=== PATIENT | male | born 1955 | race Caucasian/White ===

== ENCOUNTER 2018-12-26 11:58 | Emergency (ER) | payer BC, OTHER ==
[2018-12-26] MEDS ORDERED: KETOROLAC 60 MG/2 ML VIAL IM STA (12:41)
--- NOTE | 2018-12-26 13:23 | XR ---
EXAMINATION TYPE: XR ankle complete LT DATE OF EXAM: 12/26/2018 CLINICAL HISTORY: Pain after fall injury TECHNIQUE: Frontal, lateral and oblique images of the left ankle are obtained. COMPARISON: None. FINDINGS: There is moderate soft tissue swelling over the lateral malleolus. There is loss of normal Boehler's angle with lucent and sclerotic area through the posterior mid and inferior calcaneus. Ank le mortise symmetry is preserved. Large inferior calcaneal spur is noted. IMPRESSION: There is age indeterminate comminuted fractures through the calcaneus. Correlate clinica lly with type of injury. Moderate soft tissue swelling over lateral malleolus without acute fracture at this level identified.
--- NOTE | 2018-12-26 13:56 | XR ---
EXAMINATION TYPE: XR foot complete LT DATE OF EXAM: 12/26/2018 CLINICAL HISTORY: Pain after fall injury. TECHNIQUE: Frontal, lateral, and oblique images of the left foot are obtained. COMPARISON: None FINDINGS: There is no additional acute fracture/dislocation evident in the left foot. There is flexi on in varus positioning distal fifth toe. Forefoot and midfoot articulations are preserved. The overl radha soft tissue appears unremarkable. IMPRESSION: There is redemonstration of comminuted minimally displaced fracture through the distal t wo thirds of the calcaneus with loss of Boehler angle, lucency present suggests probable acute in age . Orthopedic referral advised.
[2018-12-26] MEDS ORDERED: MORPHINE SULFATE 4 MG/ML SYRINGE IM STA (14:05)
--- NOTE | 2018-12-26 14:24 | XR ---
EXAMINATION TYPE: XR lumbar spine 2 or 3V DATE OF EXAM: 12/26/2018 CLINICAL HISTORY: Recent injury with pain. TECHNIQUE: Frontal and lateral images of the lumbar spine are obtained. COMPARISON: None FINDINGS: There are 5 lumbar type vertebral bodies identified. Osseous structures are somewhat demin eralized. Lumbar spine show straightened alignment. Vertebral body heights are maintained without acu te fracture. There is mild to moderate disc space narrowing with mild anterior spurring L4-L5 level. There is moderate disc space narrowing with mild to moderate anterior spurring L5-S1 level. Overlying soft tissue is unremarkable. IMPRESSION: No acute fracture or dislocation is seen in the lumbar spine.
--- NOTE | 2018-12-26 15:55 | ED ---
Fall HPI - General Chief Complaint: Fall Stated Complaint: Ankle injury-[facility] Time Seen by Provider: 12/26/18 12:34 Source: patient Mode of arrival: wheelchair - History of Present Illness Initial Comments: 63-year-old male who denies past medical history presenting today for chief complaint of fall with left ankle pain. Patient states that he was on scaffolding when he was about 4 feet from the ground and gave out, he states he fell bearing most of his weight on his left foot and ankle. He states he noticed immediate pain causing him to fall sideways onto his left side. He denies any injury to the thorax or lumbar spine. He denies head injury or loss of consciousness. Patient denies any neck pain. Patient states he was unable to fully weight-bear on the left foot secondary to pain following the injury. He did note swelling over the lateral aspect of the left ankle. Patient denied numbness tingling or loss sensation. He denied any coolness or pallor of the extremity. Patient states he was concerned about fracture and presented for evaluation. Upon arrival pt denies fever, chills, shortness of breath, chest pain, back pain, abdominal pain, nausea or vomiting, numbness or tingling, dysuria or hematuria, constipation or diarrhea, headaches or visual changes, injury to any other extremity including right LE and left knee or hip pain or any other complaints. - Related Data Home Medications Medication Instructions Recorded Confirmed Atorvastatin Calcium [Lipitor] 10 mg PO DAILY 11/10/15 12/26/18 Lisinopril [Zestril] 5 mg PO DAILY 11/10/15 12/26/18 Previous Rx's Medication Instructions Recorded HYDROcodone/APAP 7.5-325MG [[place] 1 tab PO Q4H PRN 3 Days #18 tab 12/26/18 7.5-325] Allergies Allergy/AdvReac Type Severity Reaction Status Date / Time Penicillins Allergy Rash/Hives Verified 12/26/18 12:39 sulfamethoxazole Allergy Rash/Hives Verified 12/26/18 12:39 [From Bactrim] trimethoprim [From Bactrim] Allergy Rash/Hives Verified 12/26/18 12:39 Review of Systems ROS Statement: Those systems with pertinent positive or pertinent negative responses have been documented in the HPI. ROS Other: All systems not noted in ROS Statement are negative. Past Medical History Past Medical History: Cancer, GERD/Reflux, Hyperlipidemia, Hypertension, Skin Disorder Additional Past Medical History / Comment(s): DYSPHAGIA. Rash on both sides of abd-not contagious. MELANOMA with surgical removal. History of Any Multi-Drug Resistant Organisms: None Reported Past Surgical History: Hernia Repair, Tonsillectomy Additional Past Surgical History / Comment(s): 05/11/16 laproscopic brian fundloplasty with mesh. Other surgical hx: EGD. LAST COLONOSCOPY 3-4 YRS AGO. REMOVAL OF MELANOMA ON MID LOWER BACK. Past Anesthesia/Blood Transfusion Reactions: No Reported Reaction Past Psychological History: No Psychological Hx Reported Smoking Status: Never smoker Past Alcohol Use History: Occasional Past Drug Use History: None Reported - Past Family History Father Family Medical History: Cancer Additional Family Medical History / Comment(s): COLON Mother Additional Family Medical History / Comment(s): Mother of lupus. General Exam - General Exam Comments Initial Comments: General: The patient is awake and alert, in no distress, and does not appear acutely ill. Eye: Pupils are equal, round and reactive to light, extra-ocular movements are intact. No nystagmus. There is normal conjunctiva bilaterally. No signs of icterus. Ears, nose, mouth and throat: There are moist mucous membranes and no oral lesions. No cervical spine tenderness midline or paravertebral. Full range of motion of the cervical spine. Neck: The neck is supple, there is no tenderness or JVD. Cardiovascular: There is a regular rate and rhythm. No murmur, rub or gallop is appreciated. Respiratory: Lungs are clear to auscultation, respirations are non-labored, breath sounds are equal. No wheezes, stridor, rales, or rhonchi. Lung sounds present in all lung parker. Patient denies any pain with deep inspiration Gastrointestinal: Soft, non-distended, non-tender abdomen without masses or organomegaly noted. There is no rebound or guarding present. Bowel sounds are unremarkable. Musculoskeletal: Upon inspection of the left ankle there is significant soft tissue swelling over the heel as well as the lateral malleolus. Ankle does not appear grossly deformed. DP feel diminished b/l, however they are equal. Both feel warm to palpation with strong posteror tibial pulses on doppler that are equal to ausculation. Normal ROM at the knee and hip of the left LE, and right LE. Strength 5/5 at knee and hip. No tenderness to palpation of the lumbar spine, no paravertebral tenderness of the lumbar spine. Normal inspection of the chest patient denies any pain to palpation. Sensation intact both proximal and distal to injury. Capillary refill < 2 seconds. Neurological: A&O x 3. CN II-XII intact, There are no obvious motor or sensory deficits. Coordination appears grossly intact. Speech is normal. Skin: Skin is warm and dry and no rashes or lesions are noted. Psychiatric: Cooperative, appropriate mood & affect, normal judgment. Limitations: no limitations Course Vital Signs 12/26/18 12/26/18 12:24 16:06 Temperature 98.3 F 98.6 F Pulse Rate 64 66 Respiratory 18 19 Rate Blood Pressure 176/95 163/90 O2 Sat by Pulse 100 99 Oximetry Medical Decision Making - Medical Decision Making Well-appearing 63-year-old male presenting for left ankle injury. Patient came down on left ankle from 4 feet on falling scaffolding. Patient states he fell on his left side following the pain in his left ankle. He denies falling very hard experiencing pain of the chest or lower back. Lumbar spine imaging negative for acute fracture. X-ray of the foot and ankle revealed a comminuted calcaneus fracture. I did consult on-call green building design specialist physician syrup mixer assistant Edwin Cooper he was in the OR. I called his attending Dr. Gutierrez who recommended consulting Orthopedic Surgery as he is not comfortable with repair of calcaneus fracture. I did consult attending provider who called [facility]. [facility], he states he recommends outpatient follow-up with Dr. England splint and nonweightbearing instruction. He did review imaging studies to my knowledge and he was discussing case with attending provider Dr. Escamilla. Patient is neurovascular intact. Pain controlled. At this time do feel patient is stable for discharge with with back surgery follow-up and strict nonweightbearing precautions with no removal of splint. Patient aware of return parameters, denies questions at this time. Patient was giving a stay prescription for [place] for pain management as this is a very painful injury. Patient is we have all rest including overdose, and addiction--he is aware of all risks and proper use. I discussed the case in detail with attending provider Dr. England who agrees impression and plan. Patient was discharged in stable condition appearing well Disposition Clinical Impression: Left calcaneal fracture Disposition: HOME SELF-CARE Condition: Good Instructions (If sedation given, give patient instructions): Calcaneal Fracture (ED), R.I.C.E. Treatment (ED) Additional Instructions: Please use medication as discussed. Please follow-up with orthopedic surgery in next 24 hours, absolutely no weightbearing on the left foot-use crutches at all times. Please return to emergency room if the symptoms increase or worsen or for any other concerns, including decreased sensation, numbness, cool changes of toes. Do not wet, or remove the splint. Prescriptions: HYDROcodone/APAP 7.5-325MG [[place] 7.5-325] 1 tab PO Q4H PRN 3 Days #18 tab PRN Reason: Severe Pain Is patient prescribed a controlled substance at d/c from ED?: Yes When asked, does pt state using other controlled substances?: No If prescribed controlled substance>3 days was MAPS reviewed?: Prescribed <3 Days If opioid is for acute pain is fill amount 7 days or less?: Yes If Rx opioid, was Start Talking consent form obtained?: Yes Referrals: Mj Rosenberg DO [Primary Care Provider] - 1-2 days Huber Selby MD [Medical Doctor] - 1-2 days Time of Disposition: 15:54
[2018-12-26 16:08] VITALS: BP 163/90; PULSE 66; RESP 19; TEMP 98.6
== END 2018-12-26 16:07 | disposition home or self-care (01) ==
LOC: EC 11:58
DX: S92.002A Unspecified fracture of left calcaneus, initial encounter for closed fracture (principal); E78.5 Hyperlipidemia, unspecified; I10 Essential (primary) hypertension; Z79.899 Other long term (current) drug therapy; Z88.0 Allergy status to penicillin; Z88.1 Allergy status to other antibiotic agents; Z88.2 Allergy status to sulfonamides; Z85.820 Personal history of malignant melanoma of skin; W12.XXXA Fall on and from scaffolding, initial encounter; Y93.H3 Activity, building and construction; Y92.69 Other specified industrial and construction area as the place of occurrence of the external cause; Y99.0 Civilian activity done for income or pay
CPT/HCPCS: 72100; 73610; 73630; 99283; 96372 ×2; J2270; J1885

== ENCOUNTER → 2018-12-29 | Outpatient (CLI) | payer OTHER ==
--- NOTE | 2018-12-29 16:08 | CT ---
CT left ankle HISTORY: Displaced intra-articular fracture of left calcaneus Helical acquisition through the left ankle Correlation to left foot submitted to 12/26/2018 The intra-articular comminuted, displaced fracture of the left calcaneus is again noted. No dislocati on. There is associated soft tissue swelling present. IMPRESSION: Findings compatible with patient's known fracture.
== END | disposition home or self-care (01) ==
LOC: RADCTMAIN 12:18
PROVIDERS: ATTEND Orthopaedic Surgery
DX: M79.672 Pain in left foot (principal)

== ENCOUNTER 2019-01-12 08:32 | Inpatient (IN) | payer BC, OTHER ==
[2019-01-10 15:28] VITALS: BMI 27.9
[~2019-01-12 08:32] MED LIST: DEXAMETHASONE SOD PHOSPHATE 10 MG/ML 1 ML VIAL IV ONE; HYDROmorphone 0.5 MG/0.5 ML SYRINGE IVP PRN; MIDAZOLAM (PF) 2 MG/2 ML VIAL IV PRN; ONDANSETRON 4 MG/2 ML VIAL IVP ONE; SCOPOLAMINE 1.5MG/72HR PATCH TRANSDERM ONE; ceFAZolin IN SWFI 2 GM/20 ML SYRINGE IVP ONE
[2019-01-12] MEDS ORDERED: LIDOCAINE 1% 20 ML VIAL (10MG/ML) FOR IV START SQ ONE (13:31)
[2019-01-12] MEDS: LACTATED RINGERS 1,000 ML IV SCH ×2 (13:31→21:11)
[2019-01-12] MEDS ORDERED: MIDAZOLAM 2 MG/2 ML VIAL IV ONE (13:58)
[2019-01-12] MEDS ORDERED: fentaNYL (PF) 50 MCG/ML 2 ML AMP IV ONE (13:58)
--- NOTE | 2019-01-12 14:13 | P.ONQ ---
Anesthesiology Proc Note - PNB - Peripheral Nerve Block Performed Left Adductor Canal Single Time Out Performed: Yes Procedure Start Time: 13:59 Procedure Stop Time: 14:09 Indication: Acute Post-Operative Pain, Analgesia, Requested by physician Sedation Type: Sedate with meaningful contact maintained Preparation: Sterile Prep Position: Supine Catheter: Indwelling Needle Types: On-Q Needle Size: 50mm (2") Needle Gauge: 21 Technique: Ultrasound Injectate: 0.5% Ropivacaine (see comment for volume) (15CC) Blood Aspirated: No Pain Paresthesia on Injection Noted: No
--- NOTE | 2019-01-12 14:14 | P.ONQ ---
Anesthesiology Proc Note - PNB - Peripheral Nerve Block Performed Left Popliteal Time Out Performed: Yes Procedure Start Time: 14:10 Procedure Stop Time: 14:12 Indication: Acute Post-Operative Pain, Analgesia, Requested by physician Sedation Type: Sedate with meaningful contact maintained Preparation: Sterile Prep Position: Supine Catheter: Indwelling Needle Types: On-Q Needle Size: 50mm (2") Needle Gauge: 21 Technique: Ultrasound Injectate: 0.5% Ropivacaine (see comment for volume) (15CC) Blood Aspirated: No Pain Paresthesia on Injection Noted: No Resistance on Injection: Normal Events: Uneventful and Well Tolerated
[2019-01-12] MEDS ORDERED: MIDAZOLAM 2 MG/2 ML VIAL ONE (14:59)
[2019-01-12] MEDS ORDERED: PHENYLEPHRINE-0.9% NACL SYG 1 MG/10 ML SYRINGE ONE (14:59)
[2019-01-12] MEDS ORDERED: fentaNYL (PF) 50 MCG/ML 2 ML AMP ONE (14:59)
[2019-01-12] MEDS ORDERED: ROPIVACAINE 5 MG/ML 30 ML VIAL ONE (14:59)
[2019-01-12] MEDS ORDERED: LIDOCAINE 1% INJ 10MG/ML (20 ML MDV) ONE (14:59)
[2019-01-12] MEDS ORDERED: PROPOFOL 10 MG/ML 20 ML VIAL IV ONE (14:59)
[2019-01-12] MEDS ORDERED: LACTATED RINGERS 1,000 ML IV ONE (16:45)
--- NOTE | 2019-01-12 17:17 | P.OP ---
Date of Procedure: 01/12/19 Preoperative Diagnosis: Left completely displaced tongue variant intra-articular calcaneus fracture Postoperative Diagnosis: Same Procedure(s) Performed: Open reduction and internal fixation of left displaced tongue-type calcaneus fracture Anesthesia: STACY, regional Surgeon: Huber Selby Assistant To The Dean #1: Pierre Ruth Estimated Blood Loss (ml): 25 IV fluids (ml): 1,200 Pathology: none sent Condition: stable Disposition: PACU Indications for Procedure: The patient is a very pleasant previously healthy 63-year-old male who sustained a closed left tongue variant calcaneus fracture in a work-related fall in early December. He was seen in the emergency department where x-rays were taken. He is referred to my office for follow-up. The patient was found to have a displaced tongue variant calcaneus fracture. He was sent for a computed tomography scan and placed in a prefabricated calcaneus fracture area for brace with moleskin lining. After the computed tomography scan was obtained we discussed treatment options. Due to the significant displacement of the tongue fragment I recommended operative fixation. We discussed different surgical techniques including percutaneous reduction and fixation as described by Andres, a sinus tarsi approach and open reduction internal fixation versus an extensile lateral incision. We discussed the pros and cons of each treatment. My recommendation was to wait for the soft tissue swelling to resolve and the skin to wrinkle and then proceed with an attempt at percutaneous reduction and fixation and if we are unable to get a satisfactory reduction to proceed with an extensile lateral open approach. The patient and his significant other agreed to this. We discussed the potential risks and complications of surgery including but not limited to risk of anesthesia, superficial infection, deep infection, delayed wound healing, superficial wound necrosis, damage to local blood vessels or nerves, nonunion the fracture, malunion of the fracture, postoperative displacement, loss of reduction, loss of fixation, symptomatically hardware, posttraumatic subtalar arthritis, chronic pain, chronic swelling, and inability to regain preinjury level of function, inability to regain ability to work at a physically demanding job, DVT , PE, other medical complications, need for further surgery, and possibly loss of life or limb. The patient voiced his understanding of this. We also discussed that a work-related injury as a risk factor for poor outcome comparison nonrelated work injuries. The patient also understands that full recovery following calcaneus fractures can take 1-2 years. He understands that he may have chronic pain in the heel as a result of his injury. He provided his verbal and written consent to go forward with the above procedure. Description of Procedure: The patient was identified in preoperative holding and the correct left leg was marked with my initials. I reviewed the consent form with the patient and all of his questions were answered. He was given a popliteal and saphenous nerve block by anesthesia. He was then brought back to the operating room. He was transferred onto the OR table where general anesthetic and preoperative antibiotics were given. The patient had a tourniquet applied to the proximal aspect of the left thigh. The patient was then positioned in the lateral decubitus position with the right side down and the affected left leg up. The right leg was padded with foam. A bump was placed under the left leg to facilitate imaging. Fluoroscopy was brought in to verify that a lateral and axial view could be obtained. The left leg was then prepped and draped in the standard sterile fashion. Prior to starting surgery timeout was performed identifying the correct patient, operative extremity, and procedure. I began by attempting a small incision technique as described by Andres. I began by outlining the incision for an extensile lateral approach with a horizontal and vertical limb. I then came in with fluoroscopy and made a stab incision over the posterior aspect of the calcaneus. Skin incision was made with a scalpel only. Dissection was carried out carefully through the subcutaneous tissue with a hemostat. A 2.5 mm drill bit was then used to create a path down the tongue fragment. I then placed a terminally threaded 4 mm Schanz pin attached to a universal T-handled shad in this hole down into the tongue fragment. I then marked out the level of the depressed posterior facet fragment of the tongue piece directly over the marking for the extensile lateral incision. Skin incision was made with a scalpel. A 1 cm incision was made. I then used a small disla elevator to gently manipulate the posterior facet fragment while pulling down on the Schanz pin. The fracture site was freed up with a Kerkhoven elevator. I was then able to nicely reduce the posterior facet fragment and the tongue fragment reduced. A fluoroscopic image was taken verifying reduction. At this point I elected to proceed with the percutaneous fixation. A K wire for a 7.0 cannulated screw was placed from the posterior tuberosity just inferior to the posterior facet and up into the anterior process to actively rafting screw to prevent the posterior facet fragment from depressing. A partially threaded 7.0 mm screw was placed. I then placed a partially threaded cannulated 5.0 mm screws across the tongue fragment to compress and hold the reduction. Final fluoroscopic images were taken including a lateral of the calcaneus and axial heel view. There are some settling of the tongue fragment but it was significantly improved compared to preoperative imaging. The wounds were copiously irrigated and closed with interrupted 3-0 nylon stitches. I verified that all instrument, sponge, and sharp counts were correct. A sterile dressing was applied. The drapes were taken down and a well-padded bulky [place] splint was placed with the ankle in neutral. The tourniquet was not inflated during the case. The patient was then transferred to a gurney, extubated, and brought to PACU without procedure well. Pierre Ruth PA-C was required as a skilled purchasing administrative assistant for patient positioning, exposure, reduction of the fracture, placement of hardware, closure of wounds, and application of splint. Plan : The patient is going to remain strictly nonweightbearing in a bulky [place] splint. I anticipate a total of 10-12 weeks strict nonweightbearing followed by 4-6 weeks of partial progressive weightbearing in a tall boot. If the patient is comfortable following surgery he is able to discharge home tonight. If he needs to stay in the hospital overnight we will place orders for pain control and 2 doses of antibiotics. He will need follow-up in the office in 2 weeks for splint removal, x-rays of the heel, and wound inspection.
[2019-01-12] MEDS ORDERED: hydrOXYzine PAMOATE 25 MG CAP PO PRN (17:26)
[2019-01-12] MEDS ORDERED: HYDROcodone/APAP 5-325MG 1 EACH TAB PO PRN ×2 (17:26)
[2019-01-12] MEDS ORDERED: HYDROmorphone 0.5 MG/0.5 ML SYRINGE IVP PRN ×2 (17:26)
[2019-01-12] MEDS ORDERED: ONDANSETRON 4 MG/2 ML VIAL IVP PRN (17:26)
[2019-01-12] MEDS ORDERED: SENNOSIDES-DOCUSATE SODIUM 1 EACH TAB PO PRN (17:26)
[2019-01-12] MEDS ORDERED: NALOXONE 0.4 MG/ML 1 ML VIAL IV PRN (17:56)
[2019-01-12 18:49] LABS: Basophils % (A) 0 %; Eosinophils % (A) 0 %; HCT 40.6 % (39.0-53.0); HGB 13.7 gm/dL (13.0-17.5); Lymphocytes # (A) 0.7 k/uL (1.0-4.8); Lymphocytes % (A) 10 %; MCH 32.5 pg (25.0-35.0); MCHC 33.7 g/dL (31.0-37.0); MCV 96.3 fL (80.0-100.0); Mean Platelet Volume 6.9; Monocytes # (A) 0.1 k/uL (0-1.0); Monocytes % (A) 1 %; Neutrophils # (A) 5.7 k/uL (1.3-7.7); Neutrophils % (A) 87 %; Platelet Count 312 k/uL (150-450); RBC 4.21 m/uL (4.30-5.90); RDW 12.5 % (11.5-15.5); WBC 6.5 k/uL (3.8-10.6)
[2019-01-12] MEDS: HYDROcodone/APAP 10-325MG 1 EACH TAB PO PRN (20:20)
[2019-01-12] MEDS: HYDROmorphone 1 MG/ML 1 ML SYRINGE IVP PRN (21:20)
[2019-01-13] MEDS: ceFAZolin IN SWFI 2 GM/20 ML SYRINGE IVP SCH ×2 (00:22→11:52)
[2019-01-13] MEDS: HYDROcodone/APAP 10-325MG 1 EACH TAB PO PRN ×4 (00:41→13:26)
[2019-01-13 00:53] VITALS: RESP 16
[2019-01-13] MEDS: LACTATED RINGERS 1,000 ML IV SCH ×2 (02:39)
[2019-01-13] MEDS: HYDROmorphone 1 MG/ML 1 ML SYRINGE IVP PRN (02:45)
--- NOTE | 2019-01-13 07:21 | FL ---
EXAMINATION TYPE: FL guidance operating room, XR calcaneus 2V LT DATE OF EXAM: 01/12/2019 CLINICAL HISTORY: Left calcaneal fracture. TECHNIQUE: Fluoroscopy. Intraoperative 2 views left calcaneus. COMPARISON: CT left ankle December 29, 2018. FINDINGS: Fluoroscopic guidance was provided during open reduction internal fixation procedure perfo rmed by Dr. Selby. A total of 2 minutes 25 seconds of fluoroscopic time was utilized during the p rocedure and 5 spot intraoperative images are acquired. Intraoperative images acquired show placement of large horizontal screw and 2 posterior vertically or iented screws through comminuted minimally displaced fracture deformity of the calcaneus. Satisfactor y alignment is seen on intraoperative images provided after open reduction internal fixation. IMPRESSION: As Above.
[2019-01-13] MEDS ORDERED: ENOXAPARIN 40 MG/0.4 ML SYRINGE SQ SCH (09:00)
[2019-01-13 09:30] VITALS: BP 122/65; PULSE 62; TEMP 98.2
--- NOTE | 2019-01-13 10:54 | P.DS ---
Providers Date of admission: 01/12/19 12:42 Expected date of discharge: 01/13/19 Attending physician: Huber Selby Consults: 01/12/19 17:35 Consult Physician Routine Consulting Provider: Mj Rosenberg Consult Reason/Comments: Medical management Do you want consulting provider notified?: Yes Primary care physician: Mj Rosenberg - Discharge Diagnosis(es) (1) History of hypertension Current Visit: Yes Status: Acute (2) Left calcaneal fracture Current Visit: No Status: Acute Hospital Course: This is a pleasant 63-year-old male who presented with left completely displaced tongue variant intra-articular calcaneus fracture. He was admitted for open reduction internal fixation of left displaced tongue-type calcaneus fracture performed by Dr. Selby. The patient tolerated the procedure well and did well postoperatively. He has remained nonweightbearing on the left lower extremity. He is been able to use crutches to aid in ambulation as needed. His pain is adequately controlled. He feels he is ready for discharge today. Condition on day of discharge stable. Patient will be discharged home. Patient was cleared preoperatively for surgery. Patient currently denies any nausea, vomiting, fever, or chills. Patient is eating and voiding freely without difficulty. Patient will keep left lower extremity leg splint clean, dry, and intact. He will remain strict nonweightbearing on the left lower extremity. He may elevate and apply ice over the left lower extremity for comfort support as needed. He is encouraged to use crutches to aid in ambulation. Prescription for aspirin 325 mg 1 tab daily dispense #14 has been prescribed. He should take this prescription until completion. Prescriptions have also been written for Percocet 5 mg/325 mg, Mangum 10 mg/325 mg, and docusate 100 mg which patient may take as prescribed as needed for relief of his symptoms. Patient has a history of hypertension. Physical Exam on day of discharge: Patient is awake, alert, and oriented 3 Vital signs stable Good chest excursion with deep inspiration and expiration Bulky [place] splint is intact over the left lower extremity Splint is clean, dry, and intact No significant pain with palpation over the left knee Neurovascular intact left lower extremity Patient is able wiggle toes of the left lower extremity difficulty Procedures: Open reduction internal fixation of left displaced tongue-type calcaneus fracture Patient Condition at Discharge: Stable Plan - Discharge Summary Discharge Rx Participant: Yes New Discharge Prescriptions: New Aspirin 325 mg PO DAILY #14 tab Docusate [Colace] 100 mg PO BID #60 capsule HYDROcodone/APAP 10-325MG [Mangum 10-325] 1 tab PO Q6HR PRN 7 Days #40 tab PRN Reason: Pain oxyCODONE HCL/ACETAMINOPHEN [Percocet 5-325 mg] 1 tab PO Q6HR PRN 7 Days #10 tab PRN Reason: Severe Pain No Action Lisinopril [Zestril] 5 mg PO DAILY Atorvastatin Calcium [Lipitor] 10 mg PO DAILY HYDROcodone/APAP 10-325MG [Mangum 10-325] 1 tab PO Q6HR PRN PRN Reason: Pain Discharge Medication List Atorvastatin Calcium [Lipitor] 10 mg PO DAILY 11/10/15 [History] Lisinopril [Zestril] 5 mg PO DAILY 11/10/15 [History] HYDROcodone/APAP 10-325MG [Mangum 10-325] 1 tab PO Q6HR PRN 01/11/19 [History] Aspirin 325 mg PO DAILY #14 tab 01/12/19 [Rx] Docusate [Colace] 100 mg PO BID #60 capsule 01/12/19 [Rx] HYDROcodone/APAP 10-325MG [Mangum 10-325] 1 tab PO Q6HR PRN 7 Days #40 tab [Rx] oxyCODONE HCL/ACETAMINOPHEN [Percocet 5-325 mg] 1 tab PO Q6HR PRN 7 Days #10 tab 01/12/19 [Rx] Follow up Appointment(s)/Referral(s): Huber Selby MD [Medical Doctor] - 2 Weeks Patient Instructions/Handouts: ORIF (DC) Activity/Diet/Wound Care/Special Instructions: -Strict non-weight bearing on your operative leg. Do not remove your splint; Keep splint clean, dry, and intact -Use crutches, knee scooter, or a walker to ambulate after surgery. -Elevate and ice operative leg to help reduce swelling and control pain. -Take pain medications as prescribed. Take Colace as a stool softener. Take aspirin as prescribed for blood clot prevention. -Follow-up appointment with Dr. Selby in the office in 2 weeks. -Call the office with any questions or concerns, Discharge Disposition: HOME SELF-CARE
--- NOTE | 2019-01-13 12:48 | P.CON ---
Consult Note - . Consult date: 01/13/19 Assessment/Plan:: This is a very pleasant 63-year-old gentleman who is admitted under orthopedic surgery team and is status post open reduction internal fixation of the left displaced tongue type calcaneal Fracture. Status post procedure the patient is doing fine he has his left leg in dressing status post surgery. The patient denies any chest pain, racing heart, no cough, shortness breath, no bowel pain, nausea and vomiting, or diarrhea constipation, no tingling numbness on in the extremities, no itch no rash. Past medical history significant for - hypertension - Skin cancer Past surgical history - Her lower hernia repair Family history noncontributory Social history - Patient quit smoking -Drinks alcohol socially Review of systems-all systems reviewed review of systems negative except for that stated above in the HPI Physical examination Vitals-stable On exam, alert and oriented x3. HEENT: Conjunctivae normal. eyes normal. NECK: No JVD. No thyroid enlargement. No LNs CARDIOVASCULAR: S1, S2 muffled. No murmur RESPIRATION: Breath sounds diminished in the bases. No rhonchi or crackles. No bronchial breathing. ABDOMEN: Soft, nontender . No guarding. no masses palpable. No ascites, No hepatosplenomegaly.Bowel sounds heard. LEGS: left leg wrapped in dressing. NERVOUS SYSTEM: Cranial N 2-12 grossly normal. Moves all 4 limbs. No focal deficits. No sensory deficit. No signs of cerebellar dysfucntion. Skin: no ulcer no rash Joints: No active swelling. No inflammation. Lymphatic system. No LN neck axilla or groin. Assessment - Status post ORIF of left calcaneal fracture - Hypertension Plan - The patient is admitted under orthopedic surgery team - Hospitalist service consulted for medical management - Patient has no medical issues as of now - Continue current care - DVT prophylaxis as per primary team - We'll continue to follow the patient along with you - Thank you so much for this consult
== END 2019-01-13 14:02 | disposition home or self-care (01) | DRG 505 ==
LOC: 2ORMAIN 12:42 → EDSTATUS 14:15 → 4SSUR 17:32
PROVIDERS: ADMIT Orthopaedic Surgery; ATTEND Orthopaedic Surgery
PROC: 0QSM04Z Reposition Left Tarsal with Internal Fixation Device, Open Approach (ICD-10-PCS; principal; 2019-01-12 14:15)
DX: S92.002A Unspecified fracture of left calcaneus, initial encounter for closed fracture (principal); W17.89XA Other fall from one level to another, initial encounter; I10 Essential (primary) hypertension; E78.5 Hyperlipidemia, unspecified; Z85.828 Personal history of other malignant neoplasm of skin; Z87.891 Personal history of nicotine dependence; Z79.899 Other long term (current) drug therapy; Z88.0 Allergy status to penicillin; Z88.2 Allergy status to sulfonamides
CPT/HCPCS: 85025

== ENCOUNTER 2020-12-25 09:46 | Day surgery (SDC) | payer BC ==
[2020-12-23 09:38] VITALS: BMI 27.8
--- NOTE | 2020-12-25 07:56 | P.GSHP ---
History of Present Illness H&P Date: 12/25/20 CHIEF COMPLAINT: Colon screen HISTORY OF PRESENT ILLNESS: The patient is a 65-year-old male who presents for colon screen. Lower endoscopy was offered for further evaluation and management. PAST MEDICAL HISTORY: Please see list. PAST SURGICAL HISTORY: Please see list. MEDICATIONS: Please see list. ALLERGIES: Please see list. SOCIAL HISTORY: No illicit drug use FAMILY HISTORY: No reports of Crohn disease or ulcerative colitis. REVIEW OF ORGAN SYSTEMS: CONSTITUTIONAL: No reports of fevers or chills. PHYSICAL EXAM: VITAL SIGNS: Stable GENERAL: Well-developed pleasant in no acute distress. HEENT: No scleral icterus. Extraocular movements grossly intact. Moist buccal mucosa. NECK: Supple without lymphadenopathy. CHEST: Unlabored respirations. Equal bilateral excursions. CARDIOVASCULAR: Regular rate and rhythm. Distal 2+ pulses. ABDOMEN: Soft, nontender, nondistended. MUSCULOSKELETAL: No clubbing, cyanosis, or edema. ASSESSMENT: 1. Colon screen. PLAN: 1. Recommend proceeding with a lower endoscopy Past Medical History Past Medical History: Cancer, GERD/Reflux, Hyperlipidemia, Hypertension, Skin Disorder Additional Past Medical History / Comment(s): hx. MELANOMA, granuloma annulare, History of Any Multi-Drug Resistant Organisms: None Reported Past Surgical History: Hernia Repair, Tonsillectomy Additional Past Surgical History / Comment(s): laparoscopic brian fundoplasty w/mesh. EGD, COLONOSCOPY, REMOVAL OF MELANOMA LOWER BACK. Past Anesthesia/Blood Transfusion Reactions: No Reported Reaction Smoking Status: Former smoker - Past Family History Father Family Medical History: Cancer Additional Family Medical History / Comment(s): COLON Mother Additional Family Medical History / Comment(s): Mother of lupus. Medications and Allergies Home Medications Medication Instructions Recorded Confirmed Type Atorvastatin Calcium [Lipitor] 10 mg PO DAILY 11/10/15 12/23/20 History lisinopriL [Zestril] 5 mg PO DAILY 11/10/15 12/23/20 History Allergies Allergy/AdvReac Type Severity Reaction Status Date / Time Penicillins Allergy Rash/Hives Verified 12/23/20 09:29 sulfamethoxazole Allergy Rash/Hives Verified 12/23/20 09:29 [From Bactrim] trimethoprim [From Bactrim] Allergy Rash/Hives Verified 12/23/20 09:29
[~2020-12-25 09:46] MED LIST changes: -DEXAMETHASONE SOD PHOSPHATE 10 MG/ML 1 ML VIAL IV ONE; -HYDROmorphone 0.5 MG/0.5 ML SYRINGE IVP PRN; +LACTATED RINGERS 1,000 ML IV SCH; -MIDAZOLAM (PF) 2 MG/2 ML VIAL IV PRN; -ONDANSETRON 4 MG/2 ML VIAL IVP ONE; -SCOPOLAMINE 1.5MG/72HR PATCH TRANSDERM ONE; -ceFAZolin IN SWFI 2 GM/20 ML SYRINGE IVP ONE
[2020-12-25 10:27] VITALS: TEMP 98.2
[2020-12-25] MEDS ORDERED: LIDOCAINE 1% (10MG/ML) FOR IV START INTRADERMA ONE (10:35)
[2020-12-25] MEDS ORDERED: PROPOFOL 10 MG/ML 20 ML VIAL IV ONE (11:19)
--- NOTE | 2020-12-25 11:42 | P.PCN ---
Date of Procedure: 12/25/20 Description of Procedure: PREOPERATIVE DIAGNOSIS: Personal history colon polyps Colonoscopy screening. POSTOPERATIVE DIAGNOSIS: Personal history colon polyps Colonoscopy screening. Diverticulosis, scattered. OPERATION: Colonoscopy to the cecum, ileocecal valve and appendiceal orifice. SURGEON: Marti Blanco MD. ANESTHESIA: MAC. INDICATIONS: The patient is a 65-year-old male who presents for colonoscopy screening. Last colonoscopy 5 years ago. Benefits and risks were described and informed consent was obtained. DESCRIPTION OF PROCEDURE: The patient had undergone Gatorade, MiraLAX and Dulcolax prep. The patient had been brought into the operating room and laid in the left lateral decubitus position. After adequate intravenous sedation, the rectum was examined with 2% lidocaine jelly. The prostate was unremarkable. No external hemorrhoids were encountered. The rectal tone was within normal limits. No lesions were palpated in the rectal vault. An Olympus colonoscope was advanced until the cecum, ileocecal valve and appendiceal orifice were clearly viewed. The prep was excellent. Scattered diverticulosis was encountered. No colonic polyps were found. No evidence of focal colitis was found. Retroflexion of the scope demonstrated grade 1 internal hemorrhoids without active bleeding or inflammation. The colon was desufflated. The patient had tolerated the procedure well. Withdrawal time was over 6 minutes. FINDINGS: Aronchick preparation quality scale 1 (1-5) Internal hemorrhoids, grade 1 No external prolapsed hemorrhoids. No arteriovenous malformations. No adenomatous polyps. No focal colitis. Large moderate sigmoid diverticulosis. RECOMMENDATIONS: Lower endoscopy repeat colonoscopy in 2025 Plan - Discharge Summary Discharge Rx Participant: No New Discharge Prescriptions: Continue lisinopriL [Zestril] 5 mg PO DAILY Atorvastatin Calcium [Lipitor] 10 mg PO DAILY Discharge Medication List Atorvastatin Calcium [Lipitor] 10 mg PO DAILY 11/10/15 [History] lisinopriL [Zestril] 5 mg PO DAILY 11/10/15 [History] Follow up Appointment(s)/Referral(s): Marti Blanco MD [STAFF PHYSICIAN] - As Needed Patient Instructions/Handouts: Diverticulosis Diet (GEN), Diverticulosis (DC) Activity/Diet/Wound Care/Special Instructions: Repeat colonoscopy 2025 Discharge Disposition: HOME SELF-CARE
[2020-12-25 11:58] VITALS: BP 105/67; PULSE 51; RESP 18
== END 2020-12-25 12:41 | disposition home or self-care (01) ==
LOC: ORWHC2ENDO 09:46
PROVIDERS: ATTEND Surgery Plastic and Reconstructive Surgery
DX: Z12.11 Encounter for screening for malignant neoplasm of colon (principal); K57.90 Diverticulosis of intestine, part unspecified, without perforation or abscess without bleeding; K64.0 First degree hemorrhoids; Z86.010 Personal history of colon polyps; K21.9 Gastro-esophageal reflux disease without esophagitis; I10 Essential (primary) hypertension; Z85.820 Personal history of malignant melanoma of skin; L92.0 Granuloma annulare; Z98.890 Other specified postprocedural states; Z90.89 Acquired absence of other organs; Z87.891 Personal history of nicotine dependence; Z80.0 Family history of malignant neoplasm of digestive organs; Z83.2 Family history of diseases of the blood and blood-forming organs and certain disorders involving the immune mechanism; Z79.899 Other long term (current) drug therapy; Z88.0 Allergy status to penicillin; Z88.2 Allergy status to sulfonamides
CPT/HCPCS: G0105; J2704; 45378

== ENCOUNTER → 2023-03-24 | Outpatient (CLI) | payer MEDICARE ==
--- NOTE | 2023-03-25 07:24 | MR ---
EXAMINATION TYPE: MR Prostate wo/w con DATE OF EXAM: 03/24/2023 COMPARISON: None. INDICATION: Elevated PSA PSA: 7.90 ng/ml on January 06, 2023 increased from 5.20 on January 05, 2022 and 4.1 on December Recent Biopsy and Date: None Pathology Report (If Applicable): n/a TECHNIQUE: Examination was performed using a 3T MRI without an endorectal coil. Multiparametric imaging was perf ormed with T2 mutliplanar sequences, axial diffusion weighted imaging and dynamic contrast enhanced i maging, utilizing 9 mL intravenous Gadavist gadolinium contrast. FINDINGS: PROSTATE VOLUME: 3.7 cm SI x 3.2 cm AP x 5.3 cm LR Vol= 32.9 cc PSA DENSITY: 0.24 ng/ml/cc Mildly enlarged prostate gland. The peripheral zone shows no significant areas of diminished signal o n ADC mapping or increased signal on diffusion-weighted imaging. Peripheral zone hypertrophy is seen. There is overall heterogeneity in the small central transitional zone. Seminal vesicles are symmetri c and within normal limits. Urinary bladder shows mild to moderate wall thickening and mild trabeculation. No free fluid in the p elsi. There are diverticula in the sigmoid colon. No suspicious follow-up dilatation. Small fat-cont aining bilateral inguinal hernias are identified. Visualized osseous structures are intact.. IMPRESSION: Mildly enlarged prostate. A focus of clinically significant cancer is not identified. Highest Assessment Category: 1 MRI Stage: T0 N0 M0 based on review of pelvic images. False negative rates for MRI range from 5-20% depending on risk profile. Assessment Categories: 1 ? Very low (clinically significant cancer is highly unlikely to be present) 2 ? Low (clinically significant cancer is unlikely to be present) 3 ? Intermediate (the presence of clinically significant cancer is equivocal) 4 ? High (clinically significant cancer is likely to be present) 5 ? Very high (clinically significant cancer is highly likely to be present)
== END | disposition home or self-care (01) ==
LOC: RADMRIMAIN 08:26
PROVIDERS: ATTEND Urology
DX: N40.0 Benign prostatic hyperplasia without lower urinary tract symptoms (principal); R97.20 Elevated prostate specific antigen [PSA]
CPT/HCPCS: 72197; A9585